=== PATIENT | male | born 1975 | race African-American/Black ===

== ENCOUNTER 2017-03-06 00:47 | Emergency (ER) | payer OTHER ==
[~2017-03-06] VITALS: Ht 188 cm; Wt 102.5 kg
--- NOTE | 2017-03-06 01:54 | ED GENERAL ADULT ---
History of Present Illness General Chief Complaint: General Adult Stated Complaint: "PER PT RT FOOT PAIN I FELL, ABCESS IN GROIN" Source: patient Exam Limitations: no limitations Vital Signs & Intake/Output Vital Signs & Intake/Output Vital Signs Date Time Temp Pulse Resp B/P B/P Pulse O2 O2 Flow FiO2 Mean Ox Delivery Rate 03/06 0248 97.8 89 17 134/85 99 Room Air 03/06 0112 97.7 91 16 135/88 98 Room Air Allergies Coded Allergies: No Known Allergies (03/06/17) Reconcile Medications Cephalexin 500 MG CAPSULE 1 CAP PO Q6 CELLULITIS Sulfamethoxazole/Trimethoprim (Bactrim Ds Tablet) 800 MG-160 MG TABLET 1 TAB PO BID CELLULITIS Triage Note: 41YO MAL ETO TRIAGE W/CO R FT PAIN SP FALL 1 WEEK AGO. SWELLING AND PAIN PRESENT W/AMBULATING. ALSO CO ?ABCESS TO L GROIN THAT IS VERY PAINFUL. Triage Nurses Notes Reviewed? yes HPI: Patient presents for evaluation of 2 separate issues. Patient states that he fell off a ladder last week injuring the calcaneal area of his right foot. He had an abrupt onset of severe constant pain that gets worse with ambulation. In addition the patient states that he has an abscess of the medial left thigh that grew to the size of "tennis ball". It then drained yesterday after a warm shower. He is concerned about an infection. He denies any fever or cold symptoms currently. Past History Travel History Traveled to [place] past 21 day No Medical History Any Pertinent Medical History? see below for history Surgical History Surgical History: non-contributory Psychosocial History What is your primary language [place] Tobacco Use: Current Daily Use Daily Tobacco Use Amount/Type: => 5 Cigarettes daily Family History Hx Contributory? No Review of Systems Review of Systems Constitutional: Reports: no symptoms. EENTM: Reports: no symptoms. Respiratory: Reports: no symptoms. Cardiovascular: Reports: no symptoms. GI: Reports: no symptoms. Genitourinary: Reports: no symptoms. Musculoskeletal: Reports: see HPI. Skin: Reports: see HPI. Neurological/Psychological: Reports: no symptoms. Hematologic/Endocrine: Reports: no symptoms. Immunologic/Allergic: Reports: no symptoms. All Other Systems: Reviewed and Negative Physical Exam Physical Exam General Appearance: SEE BELOW Comments: Gen.: Well-nourished, well-developed, no acute respiratory distress. Head: Normocephalic, atraumatic. Eyes: Normal inspection bilaterally Ears: Normal inspection bilaterally Nose: Normal inspection, nasal cannula in place Throat/mouth : Moist mucosa Neck: Supple, full range of motion, no goiter Heart: Regular rate and rhythm Lungs: Quiet respirations Back: Normal range of motion Extremities: Right foot: Tenderness of the calcaneus but otherwise no soft tissue swelling or ecchymoses. The right foot is neurovascularly intact. Neurologic: Cranial nerves grossly intact, speech is clear Skin: warm and dry, mild soft tissue swelling with ulceration of the medial proximal left thigh consistent with a spontaneously drained abscess. There is surrounding erythema. There is no apparent fluctuance on clinical exam. Psychiatric: Calm, cooperative, no apparent delusions or hallucinations Core Measures ACS in differential dx? No CVA/TIA Diagnosis: No Severe Sepsis Present: No Septic Shock Present: No Progress Differential Diagnoses I considered the following diagnoses in my evaluation of the patient: Cellulitis , abscess, fracture, dislocation, sprain Plan of Care: Orders Procedure Date/time Status XRY-FOOT COMPLETE, RIGHT 03/06 114 Active Diagnostic Imaging: Discussed w/RAD: Radiology Read. Radiology Impression: PATIENT: MARIAJOSE CASTRO PRESENT AGE: 41 PATIENT ACCOUNT NO: [id number] : 74 LOCATION: [facility] ORDERING PHYSICIAN: YORDAN PERLA MD SERVICE DATE: 03/06/17 EXAM TYPE: RAD - XRY-FOOT COMPLETE, R EXAMINATION: XR FOOT, RIGHT CLINICAL INFORMATION: Pain and swelling status post fall last week. COMPARISON: No relevant prior imaging. TECHNIQUE: AP, lateral, and oblique views of the right foot. FINDINGS: There is no acute fracture or dislocation. Joint spaces are maintained. Soft tissues are unremarkable. No joint effusion. IMPRESSION: Unremarkable radiographs of the right foot with no evidence of acute fracture or dislocation. DICTATED BY: SEBASTIAN WELCH MD DATE/TIME DICTATED:03/06/17211 PROCESS CONTROLLER: JOHN DATE/TIME TRANSCRIBED:03/06/17211 CONFIDENTIAL, DO NOT COPY WITHOUT APPROPRIATE AUTHORIZATION. <Electronically signed in Other Vendor System> SIGNED BY: SEBASTIAN WELCH MD 03/06/17216 Initial ED EKG: none Departure Departure Disposition: HOME OR SELF CARE Condition: Stable Clinical Impression Primary Impression: Skin abscess Qualifiers: Site of cutaneous abscess: extremity Site of cutaneous abscess of extremity: lower extremity Laterality: left Qualified Code: L02.416 - Cutaneous abscess of left lower limb Secondary Impressions: Right foot sprain Qualifiers: Encounter type: initial encounter Qualified Code: S93.601A - Unspecified sprain of right foot, initial encounter Referrals: PATIENT HAS NO PRIMARY CARE DR (PCP/Family) Additional Instructions: Rest your right foot. Ibuprofen 600 mg every 6 hours as needed for pain. Follow-up with your primary care doctor (or the [facility] practice if you don't have a current primary care doctor) for reevaluation if not improved in 7- 10 days. Warm compresses to the abscess area. Keflex and Bactrim as prescribed. Follow- up with your primary care physician if not improving over the next 2-3 days. Return if any concerns or sudden worsening. Please note that there might be incidental findings in your evaluation that are unrelated to the current emergency department visit. Please notify your primary care doctor about this emergency department visit in order to obtain and review all of the testing performed so that these incidental findings can be monitored as needed. If you had an x-ray performed, please understand that some fractures may not be seen on the initial set of x-rays. If your symptoms persist you might need a repeat set of x-rays to check for such a fracture. If you had a laceration evaluated, please understand that foreign bodies such as glass or wood may not be visible to the naked eye or on plain x-rays. If the wound becomes red, swollen, increasingly more painful or if there is any drainage from the wound, please have it reevaluated by a physician for the possibility of a retained foreign body. Thank you for choosing the [facility] Emergency Department for your care. It was a pleasure to serve you today. Yordan Perla M.D. [facility] Departure Forms: Customer Survey General Discharge Information Prescriptions: Current Visit Scripts Cephalexin 1 CAP PO Q6 #40 CAP Sulfamethoxazole/Trimethoprim (Bactrim Ds Tablet) 1 TAB PO BID #20 TAB Critical Care Note Critical Care Note Critical Care Time: non-applicable
--- NOTE | 2017-03-06 02:17 | RADIOLOGY REPORT ---
EXAMINATION: XR FOOT, RIGHT CLINICAL INFORMATION: Pain and swelling status post fall last week. COMPARISON: No relevant prior imaging. TECHNIQUE: AP, lateral, and oblique views of the right foot. FINDINGS: There is no acute fracture or dislocation. Joint spaces are maintained. Soft tissues are unremarkable. No joint effusion. IMPRESSION: Unremarkable radiographs of the right foot with no evidence of acute fracture or dislocation.
[2017-03-06] MEDS ORDERED: CEPHALEXIN500 M3 PO (02:31)
[2017-03-06] MEDS ORDERED: BACTRIM DS TAB1 EACH PO (02:31)
[2017-03-06 02:48] VITALS: BP 134/85
== END 2017-03-06 02:49 ==
LOC: ERH 00:47
DX: S93.601A Unspecified sprain of right foot, initial encounter (principal); L02.416 Cutaneous abscess of left lower limb; W11.XXXA Fall on and from ladder, initial encounter; Y92.9 Unspecified place or not applicable; Y93.9 Activity, unspecified
CPT/HCPCS: 73630-RT